=== PATIENT | female | born 1945 | race Caucasian/White ===

== ENCOUNTER → 2018-01-31 09:12 | Outpatient (CLI) | payer MEDICARE, SELFPAY ==
[2018-03-01 12:46] LABS: Cholesterol 249 mg/dL (200); Glucose 81 mg/dL (74-106); High Density Lipoprotein 81 mg/dL; Triglycerides 60 mg/dL; Very Low Density Lipoprotein 12 mg/dL (5-40)
== END ==
PROVIDERS: Family Provider Family Medicine; PCP Family Medicine; Visit Provider Family Medicine
DX: Z13.220 Encounter for screening for lipoid disorders (principal); Z13.1 Encounter for screening for diabetes mellitus
CPT/HCPCS: 36415; 80061; 82947